=== PATIENT | male | born 1985 | race Caucasian/White ===

== ENCOUNTER 2020-03-05 08:40 | Emergency (ER) | payer OTHER, SELFPAY ==
[2020-03-05 08:41] VITALS: BP 167/103; PULSE 107; RESP 16; TEMP 36.3; O2SAT 100; BMI 30.5
--- NOTE | 2020-03-05 08:54 | EKG12_ITS ---
Test Reason : CP Blood Pressure : / mmHG Vent. Rate : 100 BPM Atrial Rate : 100 BPM P-R Int : 180 ms QRS Dur : 088 ms QT Int : 344 ms P-R-T Axes : 029 010 042 degrees QTc Int : 443 ms Normal sinus rhythm Normal ECG No previous ECGs available Confirmed by KALYN HURST, ROSEMARY ([id number]), editor farm journal KWAME VERDE ([id number]) on 03/30/2020 4:09:57 PM Referred By: MEGHAN Confirmed By:RAISSA MCCAIN MD
--- NOTE | 2020-03-05 08:54 | EKG12_ITS ---
Test Reason : CP Blood Pressure : / mmHG Vent. Rate : 108 BPM Atrial Rate : 108 BPM P-R Int : 182 ms QRS Dur : 090 ms QT Int : 344 ms P-R-T Axes : 036 011 041 degrees QTc Int : 460 ms Sinus tachycardia Otherwise normal ECG When compared with ECG of 05-MAR-2020 08:54, MANUAL COMPARISON REQUIRED, DATA IS UNCONFIRMED Confirmed by KALYN HURST, ROSEMARY ([id number]), newspaper managing editor KWAME VERDE ([id number]) on 03/30/2020 4:09:51 PM Referred By: MEGHAN Confirmed By:RAISSA MCCAIN MD
--- NOTE | 2020-03-05 09:05 | EKG12_ITS ---
Test Reason : CP Blood Pressure : / mmHG Vent. Rate : 113 BPM Atrial Rate : 113 BPM P-R Int : 172 ms QRS Dur : 086 ms QT Int : 332 ms P-R-T Axes : 039 012 037 degrees QTc Int : 455 ms Sinus tachycardia Otherwise normal ECG Confirmed by JESSICA HURST, YUNIOR ([id number]), continuity editor ARMIDA DYE ([id number]) on 03/07/2020 8:53:13 AM Referred By: MEGHAN Confirmed By:YUNIOR LOPEZ MD
--- NOTE | 2020-03-05 09:06 | ED.VIS.CHEST ---
History of Present Illness Chief Complaint: General Illness Informant: Patient Onset: 12-04 Timing: Intermittent, Lasts - hours usually Quality: Aching, Dull, Pressure Location: Right Parasternal Current Severity: Moderate Maximum Severity: Moderate Worsened By: Breathing - sometimes but not really, - - seems worse at night while lying down some nights. Not Worsened By: Movement of Arm, Movement of Torso, Eating Relieved By: Nothing - in particular Associated Symptoms: Dyspnea - when exerting. Negative for: Nausea, Vomiting, Diaphoresis, Cough, Fever, Lightheadedness, Palpitations Narrative: Over the past week or more patient has been having intermittent chest discomfort, today radiating into his distal right upper arm and his right upper extremity has felt tingly. Throughout the past week, he has had intermittent malaise, headaches, dyspnea when exerting himself, which are unusual for him. No fevers or chills. 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 He is a non-smoker. No known history of heart disease in him or family members. No history of DVT, PE, or risk factors for them. Recent Illness/Hospitalization: No CVD Risk Factors: Negative for: Hypertension, Diabetes, Hypercholesterolemia, Family History 1' </=55, Smoking PE Risk Factors: Negative for: Recent Travel/Surgery, Recenet Immobilization, Prior DVT or PE, Cancer, OCP + Smoking + >/=35 - Past Medical History (1) Ulcerative colitis Status: Chronic Past Medical History - Allergies and Home Meds Allergies/Adverse Reactions: Allergies No Known Allergies Allergy (Verified 03/05/20 08:44) Primary Care Physician: Pavel Carmen MD [Primary Care Provider] - Surgical History: no surgical history Lives: With Family Smoking Status: Never smoker Review of Systems General: Reports: Malaise. Denies: Chills, Fever, Sweats Eyes: Denies: Visual changes - bilaterally, Diplopia ENT: Denies: Bilateral ear pain, Rhinorrhea, Sore throat Cardiovascular: Reports: Chest pain. Denies: Palpitations Respiratory: Reports: Dyspnea on exertion. Denies: Cough, Sputum, Orthopnea Gastrointestinal: Denies: Abdominal pain, Nausea, Vomiting, Diarrhea, Melena, Hematochezia Genitourinary: Denies: Dysuria, Hematuria, Frequency Musculoskeletal: Reports: Neck pain - Sore, Extremity Pain - Right upper arm. Denies: Myalgias, Back pain, Swelling Skin: Denies: Rash, Wounds Neurological: Reports: Headache. Denies: Weakness, Numbness Physical Exam Vital Signs/Narrative: Vital Signs Temp Pulse Resp BP Pulse Ox 03/05/20 08:41 97.3 F L 107 H 16 167/103 H 100 Inital Vital Signs reviewed: Yes General: Well nourished, Well developed, No Acute Distress Head: Normocephalic, Atraumatic Eyes: Perrl, EOMI ENT: Moist mucous membranes, No rhinorrhea Neck: Supple, Nontender, No lymphadenopathy Cardiovascular: Regular rate, Regular rhythm, No murmurs. Negative for: Tachycardia Respiratory: No distress, CTA bilaterally, Chest nontender Abdomen: Soft, Nontender, Nondistended, Normal bowel sounds Back: Nontender, Normal Inspection. Negative for: CVA tenderness Extremities: Nontender, No edema. Negative for: Calf Tenderness Skin: Normal color, No rash, No Trauma Neurological: Alert, Oriented x3, Cranial nerves II-XII grossly intact, Normal Strength, Normal Sensation, Normal Gait Psychological: Normal affect, Normal Mood Diagnostic/Tx/Re-eval Impressions Chest X-Ray 03/05/20 09:30 IMPRESSION: Normal x-ray examination of the chest. Electronically Signed: eGrman Santos, at 9:48 EST , Service support , 03/05/20 09:30 Chest 1 View (Portable) [RAD] Stat Laboratory Results 03/05/20 03/05/20 03/05/20 09:15 09:15 09:15 WBC 6.3 RBC 5.51 Hgb 15.7 Hct 47.4 MCV 86.0 MCH 28.5 MCHC 33.1 RDW Std Deviation 37.2 RDW Coeff of [place] 11.7 Plt Count 255 MPV 10.5 Immature Gran % (Auto) 0.300 Neut % (Auto) 64.5 Lymph % (Auto) 26.4 [place] % (Auto) 6.4 Eos % (Auto) 2.1 Baso % (Auto) 0.3 Absolute Neuts (auto) 4.0 Absolute Lymphs (auto) 1.65 Nucleated RBC % 0 D-Dimer Quant (PE/DVT) <= 0.27 Sodium 138 Potassium 4.1 Chloride 103 Carbon Dioxide 27.0 Anion Gap 8 BUN 15 Creatinine 1.21 Estim Creat Clear Calc 96.30 Est GFR (MDRD) Af Amer 87 Est GFR (MDRD) Non-Af 72 BUN/Creatinine Ratio 12.4 Glucose 102 Calcium 8.9 Troponin I < 0.015 - Rhythm Strip Rhythm Strip: Sinus Tach Rate: 110 Ectopy: None - EKG Initial EKG Interpretation: No Acute Injury Pattern - Normal EKG, Sinus Tachycardia Treatment: GI Cocktail Repeat Eval: 07/04 - Improved with resolution of right upper extremity symptoms MULUGETA Risk: No Positive MULUGETA Elements Score: 0 - Medical Decision Making GI cocktail improved his symptoms, his work-up was negative including a D-dimer ruling out pulmonary embolus as cause for his acute symptoms. Patient was reassured, this is not anything life-threatening, and I am suspicious this could be GI in etiology. We will place him on a PPI for now, and he is comfortable following up with his PCP at their office in [place]. Discussed reasons to return he is comfortable with that plan. ED Disposition - Plan for ED Patient: Disposition: Home or Assisted Living Diagnosis: Chest pain, non-cardiac Instructions: ED Chest Pain NonCardiac Prescriptions: Pantoprazole Sodium [Protonix] 40 mg PO DAILY #30 tab Transmission Status: Pending to [id number] Referrals: Pavel Carmen MD [Primary Care Provider] - 1-2 Weeks
[2020-03-05] MEDS: Mag Hydrox/Al Hydrox/Simeth 30 ML UDC PO (09:14)
[2020-03-05 09:22] VITALS: BP 157/98; PULSE 106; RESP 17; O2SAT 96
--- NOTE | 2020-03-05 09:30 | RAD_ITS ---
STUDY: X-RAY CHEST REASON FOR EXAM: Male, 34 years old. CHEST PAIN WITH RADIATION INTO RIGHT ARM X1 WEEK TECHNIQUE: Single AP portable view of the chest. COMPARISON: None. FINDINGS: EKG electrodes are seen. The lungs are clear and expanded. There is no demonstrated pleural abnormality. Normal size heart. Normal mediastinum and meaghan. Normal visualized pulmonary arteries. Normal visualized aortic arch and descending thoracic aorta. Normal visualized thoracic spine. Normal visualized ribs, clavicles, and shoulders. There is no demonstrated abnormality of the visualized soft tissue structures of the upper abdomen. RAD/Chest 1 View (Portable) IMPRESSION: Normal x-ray examination of the chest. Electronically Signed: German Santos, at 9:48 EST , Service support ,
[2020-03-05 09:40] LABS: Absolute Lymphocyte Count 1.65 X10^3/uL (0.83-4.51); Basophil# 0.02 X10^3/uL; Basophil% 0.3 % (0-1); Eosinophil# 0.13 X10^3/uL; Eosinophils% 2.1 % (0-5); Hematocrit 47.4 % (40-54); Hemoglobin 15.7 g/dL (13.0-16.5); Lymphocyte # 1.65 X10^3/ul (4.0); Lymphocyte % 26.4 % (19-41); Mean Corp Hgb Conc 33.1 g/dL (32-36); Mean Corpuscular Hgb 28.5 pg (27.0-32.0); Mean Platelet Vol. 10.5 fl (6.2-12.0); Monocyte% 6.4 % (0-10); NRBC Flagged by Analyzer 0 % (0-5); Neutrophil # 4.03 X10^3/uL (2.7-7.7); Neutrophil % 64.5 % (47-70); Platelet Count 255 K/mm3 (150-450); RBC Distribution Width CV 11.7 % (11.6-14.6); RBC Distribution Width SD 37.2 fl (35.1-43.9); Red Blood Count 5.51 M/mm3 (4.6-6.2); White Blood Count 6.3 K/mm3 (4.4-11.0)
[2020-03-05 10:16] LABS: Anion Gap 8 (5-15); BUN 15 mg/dL (7-18); BUN/Creat Ratio 12.4 RATIO (10-20); Calcium,Total 8.9 mg/dL (8.5-10.1); Chloride 103 mmol/L (98-107); Creatinine, Serum 1.21 mg/dL (0.70-1.30); EST Glomerular Filtration Rate 72 mL/min (>60); Est Glom Filt Rate - Afr Amer 87 mL/min (>60); Glucose 102 mg/dL (74-106); Potassium 4.1 mmol/L (3.5-5.1); Sodium Level 138 mmol/L (136-145)
[2020-03-05 10:18] LABS: D-Dimer Quantitative (DVT/PE) <= 0.27 FEU/ug/m (0.27-0.49)
[2020-03-05 10:38] VITALS: BP 155/68; PULSE 81; RESP 18; O2SAT 97
--- NOTE | 2020-03-05 10:39 | ED.RN ---
THIS NURSE REVIEWED D/C INSTRUCTIONS WITH PT. PT VERBALIZED UNDERSTANDING OF INSTRUCTIONS. IV D/C. IV CATHETER INTACT. PT TOLERATED WELL. PT DENIES FURTHER NEEDS OR QUESTIONS AT THIS TIME. PT AMBULATES FROM ROOM ON OWN WITHOUT ASSISTANCE FROM STAFF
== END 2020-03-05 10:40 | disposition home or self-care (01) ==
PROVIDERS: Emergency Provider Emergency Medicine; PCP Family Medicine
DX: R07.89 Other chest pain (principal); Z20.828 Contact with and (suspected) exposure to other viral communicable diseases; K51.90 Ulcerative colitis, unspecified, without complications; Z79.899 Other long term (current) drug therapy
CPT/HCPCS: 71045; 80048; 84484; 85025; 85379; 93005; 99285